=== PATIENT | female | born 1975 ===

== ENCOUNTER 2020-12-20 10:16 | Outpatient (REF) | payer BC, SELFPAY ==
[2020-12-20 10:54] LABS: MANUAL DIFF FLAG NO
[2020-12-20 11:01] LABS: Basophils Percent Auto 0.6 % (0-2); Eosinophils Absolute Auto 0.3 X10*3/uL (0.0-0.4); Hemoglobin 13.7 g/dl (12.0-16.0); Imm Gran Abs Auto 0.02 X10*3/uL (0.00-0.03); Imm Gran Pct Auto 0.4 % (0.0-0.4); Lymphocytes Absolute Auto 1.9 X10*3/uL (1.2-4.9); Lymphocytes Percent Auto 37.2 % (20-40); Mean Corpuscular HGB Conc 34.3 g/dl (31.0-35.0); Mean Corpuscular Hemoglobin 29.6 pg (27.0-33.0); Mean Corpuscular Volume 86.4 fL (80-98); Mean Platelet Volume 8.8 fL (9.4-12.3); Monocytes Absolute Auto 0.4 X10*3/uL (0.1-1.2); Monocytes Percent Auto 7.1 % (2-11); Neutrophils Absolute Auto 2.6 X10*3/uL (2.0-8.3); Neutrophils Percent Auto 49.7 % (45-73); Platelet Count 292 X10*3/uL (160-400); Red Blood Count 4.63 X10*6/uL (4.20-5.50); Red Cell Distribution Width 11.9 % (11.0-16.0); White Blood Count 5.2 X10*3/uL (4.8-10.8)
[2020-12-20 11:44] LABS: Alanine Aminotransferase 38 U/L (0-31); Albumin Level 4.5 g/dL (3.5-5.0); Alkaline Phosphatase 90 U/L (39-117); Anion Gap 15 (12-20); Aspartate Amino Transferase 22 U/L (5-31); Bilirubin Total < 0.2 mg/dL (0.0-1.0); Blood Urea Nitrogen 18 mg/dL (9-16); Carbon Dioxide 27 mmol/L (22-29); Chloride 104 mmol/L (96-108); Cholesterol 210 mg/dL; Estimated Glomerular Filt Rate > 60; Glucose Random 108 mg/dL (60-115); HDL Cholesterol 50 mg/dL; LDL Cholesterol Calculated 143 mg/dl; Potassium 4.7 mmol/L (3.3-5.1); Sodium 141 mmol/L (135-145); Total Protein 7.2 g/dL (6.5-8.0); Triglycerides 86 mg/dL
[2020-12-20 11:46] LABS: Thyroid Stimulating Hormone 1.22 uIU/mL (0.32-4.0)
== END 2020-12-20 10:17 | disposition home or self-care (01) ==
LOC: HO.LAB 10:16
PROVIDERS: PCP Internal Medicine; Visit Provider Internal Medicine
DX: F33.42 Major depressive disorder, recurrent, in full remission (principal); F90.0 Attention-deficit hyperactivity disorder, predominantly inattentive type; G47.13 Recurrent hypersomnia; G47.33 Obstructive sleep apnea (adult) (pediatric)
CPT/HCPCS: 36415; 80053; 80061; 84443; 85025

== ENCOUNTER 2020-12-26 11:29 | Outpatient (REF) | payer BC, SELFPAY ==
--- NOTE | ~2020-12-26 | MM_ITS ---
EXAMINATION: MM SCREENING DIGITAL BREAST TOMOSYNTHESIS, BILATERAL CLINICAL INFORMATION: Screening. Asymptomatic. The lifetime risk of breast cancer based on the Tyrer-Cuzick Model is 9.4%. COMPARISON: Mammography: December 15, 2018 TECHNIQUE: Digital breast tomosynthesis is performed in both the craniocaudal and mediolateral oblique views along with computer-aided detection (CAD). Synthesized 2D images are generated from the tomosynthesis. FINDINGS: The breasts are extremely dense, which lowers the sensitivity of mammography (ACR BI-RADS breast composition Category d). There are no significant masses, abnormal calcifications, or other abnormalities. Skin calcifications seen within the right axilla. MM/MM tomosynthesis screening BI IMPRESSION: There are no significant changes from prior study. ASSESSMENT: BI-RADS 1: Negative RECOMMENDATION: Routine annual mammography screening. This patient's information was entered into a reminder system with a target due date for their next mammogram.
== END 2020-12-26 11:30 | disposition home or self-care (01) ==
LOC: HO.MAMMO 11:29
PROVIDERS: PCP Internal Medicine; Visit Provider Internal Medicine
DX: Z12.31 Encounter for screening mammogram for malignant neoplasm of breast (principal)
CPT/HCPCS: 77063; 77067

== ENCOUNTER 2021-07-23 10:51 | Outpatient (REF) | payer OTHER, SELFPAY ==
[2021-07-23 16:21] LABS: CT PCR NOT DETECTED (Not Detect.); NG PCR NOT DETECTED (Not Detect.)
[2021-07-26 06:06] LABS: HPV mRNA E6/E7 rflx Not Detected (Not Detected)
== END 2021-07-23 10:52 | disposition home or self-care (01) ==
LOC: HO.LAB 10:51
PROVIDERS: PCP Internal Medicine; Visit Provider Obstetrics & Gynecology
DX: Z01.419 Encounter for gynecological examination (general) (routine) without abnormal findings (principal); Z11.51 Encounter for screening for human papillomavirus (HPV); Z11.3 Encounter for screening for infections with a predominantly sexual mode of transmission; N93.9 Abnormal uterine and vaginal bleeding, unspecified; N91.5 Oligomenorrhea, unspecified
CPT/HCPCS: 87491; 87591; 87624; 88142; 99212

== ENCOUNTER 2021-08-06 13:35 | Outpatient (REF) | payer OTHER, SELFPAY | END 2021-08-06 13:36 | disposition home or self-care (01) | LOC: HO.LAB 13:35 | PROVIDERS: PCP Internal Medicine; Visit Provider Obstetrics & Gynecology | DX: N93.9 Abnormal uterine and vaginal bleeding, unspecified (principal) | CPT/HCPCS: 58100; 88305 ==

== ENCOUNTER 2021-08-08 11:03 | Outpatient (REF) | payer OTHER, SELFPAY ==
[2021-08-08 11:49] LABS: Hematocrit 39.6 % (37-47); Hemoglobin 13.5 g/dl (12.0-16.0); Mean Corpuscular HGB Conc 34.1 g/dl (31.0-35.0); Mean Corpuscular Hemoglobin 29.8 pg (27.0-33.0); Mean Corpuscular Volume 87.4 fL (80-98); Platelet Count 273 X10*3/uL (160-400); Red Blood Count 4.53 X10*6/uL (4.20-5.50); Red Cell Distribution Width 11.9 % (11.0-16.0); White Blood Count 4.7 X10*3/uL (4.8-10.8)
[2021-08-08 12:34] LABS: TSH reflex Free T4 1.02 uIU/mL (0.32-4.0)
[2021-08-08 12:48] LABS: HCG Quantitative 3 mIU/mL
== END 2021-08-08 11:04 | disposition home or self-care (01) ==
LOC: HO.US 11:03
PROVIDERS: PCP Internal Medicine; Visit Provider Obstetrics & Gynecology
DX: N93.9 Abnormal uterine and vaginal bleeding, unspecified (principal)
CPT/HCPCS: 36415; 84443; 84702; 85027

== ENCOUNTER 2021-08-28 13:28 | Outpatient (REF) | payer OTHER, SELFPAY ==
--- NOTE | ~2021-08-28 | US_ITS ---
EXAMINATION: US PELVIC AND TRANSVAGINAL CLINICAL INFORMATION: Abnormal uterine and vaginal bleeding. COMPARISON: None TECHNIQUE: Ultrasound of the pelvis is performed using both transabdominal and transvaginal transducers along with Doppler. Transvaginal imaging is performed due to inadequate visualization transabdominally. FINDINGS: Uterus: The uterus is retroverted and retroflexed and measures 6.1 x 3.6 x 4.4 cm. There are nabothian cysts within the cervix. The double wall endometrial thickness is 0.5 mm. The uterus is smooth in contour and has normal myometrial echogenicity. Within the anterior uterine fundus, there is a heterogeneous probable fibroid measuring 3 x 2.5 x 3.3 cm. Adnexa: Both ovaries are visualized. There is normal color-flow to the adnexa. There is no ovarian torsion. Trace pelvic free fluid. Right ovary measures 2.6 x 1.1 x 1.4 cm. Right ovarian volume of 2.1 mL. Left ovary measures 2.3 x 1 x 1.1 cm. Left ovarian volume of 1.3 mL. US/US pelvic and transvaginal IMPRESSION: 1. Uterine fundal fibroid measuring up to 3.3 cm. 2. Sonographically unremarkable endometrium. 3. Trace pelvic free fluid.
== END 2021-08-28 13:29 | disposition home or self-care (01) ==
LOC: HO.US 13:28
PROVIDERS: PCP Internal Medicine; Visit Provider Obstetrics & Gynecology
DX: N93.9 Abnormal uterine and vaginal bleeding, unspecified (principal)
CPT/HCPCS: 76830; 76856

== ENCOUNTER 2021-09-18 12:59 | Outpatient (REF) | payer OTHER, SELFPAY | END 2021-09-18 13:00 | disposition home or self-care (01) | LOC: HO.LAB 12:59 | PROVIDERS: PCP Internal Medicine; Visit Provider Obstetrics & Gynecology | DX: N93.9 Abnormal uterine and vaginal bleeding, unspecified (principal) | CPT/HCPCS: 58100; 88305 ==

== ENCOUNTER → 2021-10-07 08:21 | Outpatient (BNVA) | payer OTHER, SELFPAY | PROVIDERS: PCP Internal Medicine; Visit Provider Obstetrics & Gynecology | DX: N93.9 Abnormal uterine and vaginal bleeding, unspecified (principal) | CPT/HCPCS: 99212 ==

== ENCOUNTER 2023-01-12 13:15 | Outpatient (REF) | payer OTHER, SELFPAY ==
[2023-01-12 13:31] LABS: MANUAL DIFF FLAG NO
[2023-01-12 14:21] LABS: Basophils Percent Auto 0.4 % (0-2); Eosinophils Absolute Auto 0.2 X10*3/uL (0.0-0.4); Eosinophils Percent Auto 3.5 % (0-4); Hemoglobin 14.9 g/dl (12.0-16.0); Imm Gran Abs Auto 0.01 X10*3/uL (0.00-0.03); Imm Gran Pct Auto 0.1 % (0.0-0.4); Mean Corpuscular HGB Conc 35.5 g/dl (31.0-35.0); Mean Corpuscular Volume 84.5 fL (80.0-98.0); Monocytes Absolute Auto 0.4 X10*3/uL (0.1-1.2); Monocytes Percent Auto 5.4 % (2-11); Neutrophils Absolute Auto 4.1 x10*3/uL (2.0-8.3); Neutrophils Percent Auto 60.6 % (45-73); Platelet Count 307 X10*3/uL (160-400); Red Blood Count 4.97 X10*6/uL (4.20-5.50); White Blood Count 6.8 X10*3/uL (4.8-10.8)
[2023-01-12 15:16] LABS: Alanine Aminotransferase 43 U/L (0-31); Albumin Level 4.5 g/dL (3.5-5.0); Alkaline Phosphatase 100 U/L (39-117); Anion Gap 12 (12-20); Aspartate Amino Transferase 24 U/L (5-31); Bilirubin Total 0.4 mg/dL (0.0-1.0); Blood Urea Nitrogen 22 mg/dL (9-16); Calcium 9.5 mg/dL (8.4-10.2); Carbon Dioxide 25 mmol/L (22-29); Chloride 109 mmol/L (96-108); Cholesterol 236 mg/dL; Estimated Glomerular Filt Rate > 60; Glucose Random 106 mg/dL (60-115); HDL Cholesterol 41 mg/dL; LDL Cholesterol Calculated 126 mg/dl; Potassium 4.2 mmol/L (3.3-5.1); Sodium 142 mmol/L (135-145); Total Protein 7.3 g/dL (6.5-8.0); Triglycerides 345 mg/dL
== END 2023-01-12 13:16 | disposition home or self-care (01) ==
LOC: HO.LAB 13:15
PROVIDERS: PCP Internal Medicine; Visit Provider Internal Medicine
DX: Z00.00 Encounter for general adult medical examination without abnormal findings (principal); E78.00 Pure hypercholesterolemia, unspecified; F32.5 Major depressive disorder, single episode, in full remission; J02.9 Acute pharyngitis, unspecified
CPT/HCPCS: 36415; 80053; 80061; 85025

== ENCOUNTER 2024-01-08 06:53 | Day surgery (SDC) | payer OTHER, SELFPAY ==
[2024-01-06 10:29] VITALS: BMI 26.4
--- NOTE | 2024-01-07 12:21 | P.CONAN_ITS ---
Documented by User: Mary Candelaria NP 01/07/24 12:21 HPI - Anesthesia Eval Consult details Narrative: 48yo F for Colonoscopy [facility] Active Problems Active Problems: All Active Problems (Updated 01/06/24 @ 10:28 by Katlin Hunt RN) Abnormal uterine bleeding (Acute) Oligomenorrhea (Acute) Past Medical History Medical History (Updated 01/06/24 @ 10:28 by Katlin Hunt RN) KODI (stress urinary incontinence, female) GERD (gastroesophageal reflux disease) Depression Family History Family History Father Diabetes Mother No problems noted. Surgical History Surgical History History of pubovaginal sling History of esophagogastroduodenoscopy (EGD) History of bladder surgery Social History Social History (Updated 01/06/24 @ 10:28 by Katlin Hunt RN) Patient Tobacco Use Status: Never used Tobacco Use of substances other than those prescribed or required for medical reasons: No Are you DNR?: No Advance Directives: No Advance Directives Information Provided: Yes Meds Allergies Allergy/AdvReac Type Severity Reaction Status Date / Time No Known Allergies Allergy Verified 01/08/24 08:02 [No Known Allergies*] Home Medications Medication Instructions Recorded Confirmed Last Taken Type No Known Home Meds 01/08/24 01/08/24 Unknown History Exam Height,Weight and Vital Signs: Height 5 ft 3 in Weight 67.585 kg Assessment and Plan Assessment Anesthesia Assessment: Chart Reviewed Documented by User: Kishor Alamo MD 01/08/24 09:14 [facility] Past Medical History Medical History (Updated 01/06/24 @ 10:28 by Katlin Hunt RN) KODI (stress urinary incontinence, female) GERD (gastroesophageal reflux disease) Depression Patient : No Family History Family History Father Diabetes Mother No problems noted. Family history of problems with anesthesia: No Surgical History Surgical History History of pubovaginal sling History of esophagogastroduodenoscopy (EGD) History of bladder surgery History of Problems with Anesthesia: No Social History Social History (Updated 01/06/24 @ 10:28 by Katlin Hunt RN) Patient Tobacco Use Status: Never used Tobacco Use of substances other than those prescribed or required for medical reasons: No Are you DNR?: No Advance Directives: No Advance Directives Information Provided: Yes Meds Allergies Allergy/AdvReac Type Severity Reaction Status Date / Time No Known Allergies Allergy Verified 01/08/24 08:02 [No Known Allergies*] Home Medications Medication Instructions Recorded Confirmed Last Taken Type No Known Home Meds 01/08/24 01/08/24 Unknown History Exam Airway Mallampati Class: I TM Dist: >3cm Neck ROM: Full Loose/Missing/Broken Teeth: No Heart: ok Lungs: ok Assessment and Plan Assessment Anesthesia Assessment: Anesthesia Plan Discussed Final Anesthetic Review Family History of Problems with Anesthesia: No History of Problems with Anesthesia: No NPO: Yes ASA Class: II Final Preanesthetic Review: No Changes in Pt Med Stat, Meds/Allgs Chart Reviewed, Consent Obtained/Reviewed and Anes Risks/Benef Reviewed Patient Risk: Low Procedure Risk: Low Anesthetic Plan Anesthetic Plan: MAC: and Agree w/ Assess. and Plan Disposition: Standard PACU
[2024-01-08 08:00] LABS: UPreg QC Valid YES; Urine Pregnancy NEGATIVE (NEGATIVE)
[2024-01-08 08:03] VITALS: BP 116/63; PULSE 64; RESP 16; TEMP 36.7; O2SAT 97; BMI 25.8
[2024-01-08] MEDS: Lactated Ringers 1,000 ML 100 ML IVCONT (08:24)
--- NOTE | 2024-01-08 08:57 | MHC.SHP ---
Pre-Procedural Eval Section A - 24 Hr Update-Section A only Date of Service: 01/08/24 Section B - Complete if H&P > 30 days Chief Complaint: screening Details of Present Illness: see H&P no changes Relevant Family History (Specify if Yes): No Relevant Social History: None Present Medications: see Short Stay Collaborative assessment Medical History: No relevant PMH Allergies: Allergies Allergy/AdvReac Type Severity Reaction Status Date / Time No Known Allergies Allergy Verified 01/08/24 08:02 [No Known Allergies*] Review of Systems Sugical H&P ROS: Negative: Constitution, Cardiovascular, Respiratory, Neurological, Psychiatric, Hem-Onc, Allergic/Immunologic, Gastrointestinal, Genitourinary, Musculoskeletal, Integumentary, Endocrine and Eyes/Ears/Nose/Throat Exam Surgical H&P Exam: Normal: HEENT, Normal: Heart, Normal: Lungs, Normal: Extremities, Normal: Abdomen, Normal: Skin and Normal: Neurological Plan Diagnosis/Plan: Unchanged I have reviewed the history and physical and performed a pertinent physical examination on my patient. No changes have occurred unless specified. Time Spent With Patient Time: Total time managing care of this patient today ____ minutes.
[2024-01-08 09:40] VITALS: BP 86/45; PULSE 53; RESP 16; TEMP 36.7; O2SAT 95
--- NOTE | 2024-01-08 09:59 | OP_ITS ---
DATE OF SERVICE: 01/08/2024 SURGEON: Perez Koroma MD INDICATIONS: Colon cancer screening. PREOPERATIVE DIAGNOSIS: POSTOPERATIVE DIAGNOSIS: PROCEDURE PERFORMED: Colonoscopy to the terminal ileum. ESTIMATED BLOOD LOSS: COMPLICATIONS: ANESTHESIA: Monitored anesthesia care. ASSISTANTS: SPECIMENS: DESCRIPTION OF PROCEDURE: A history and physical performed, the risks and benefits of the procedure were explained to the patient. Informed consent was obtained. The patient was placed in the left lateral decubitus position. A digital rectal exam was performed and was found to be normal. The Olympus pediatric video colonoscope was introduced into the rectum and advanced to the cecum. The cecum was identified by transillumination, palpation, and identification of ileocecal valve. Examination was performed. The scope was removed. She tolerated the procedure well and was taken to recovery room in stable condition. FINDINGS: The terminal ileum was examined and appeared normal. The visualized colonic mucosa was normal. There was a moderate amount of semi-formed stool present in the ascending, transverse, and descending colon, part of which could be suction, part of which could not be suctioned. This did limit the sensitivity examination for detection of small polyps. This was washed and suctioned as best possible. No polyps were identified. Retroflexed examination showed small internal hemorrhoids. IMPRESSION: 1. Normal colonoscopy. 2. Limited examination as above. RECOMMENDATION: 1. Follow up as needed. 2. The recommendation for repeat colonoscopy is 3 years based on the limitations of today's prep. MD SAUD Bonner/JOSEL / [id number]
[2024-01-08 10:01] VITALS: BP 99/65; PULSE 66; RESP 17; TEMP 36.7; O2SAT 94
== END 2024-01-08 10:15 | disposition home or self-care (01) ==
PROVIDERS: Nurse Practitioner; PCP Internal Medicine; Visit Provider Internal Medicine Gastroenterology
PROC: 0DJD8ZZ Inspection of Lower Intestinal Tract, Via Natural or Artificial Opening Endoscopic (ICD-10-PCS; CPT 45378; principal; 2024-01-08 09:10)
DX: Z12.11 Encounter for screening for malignant neoplasm of colon (principal); K64.8 Other hemorrhoids; R10.12 Left upper quadrant pain; K21.9 Gastro-esophageal reflux disease without esophagitis; N39.3 Stress incontinence (female) (male); F32.A Depression, unspecified; Z98.890 Other specified postprocedural states
CPT/HCPCS: 45378; 81025; J2704

== ENCOUNTER 2024-10-19 07:38 | Outpatient (REF) | payer OTHER, SELFPAY ==
[2024-10-19 10:49] LABS: MANUAL DIFF FLAG NO
[2024-10-19 10:53] LABS: Basophils Percent Auto 0.7 % (0-2); Eosinophils Absolute Auto 0.3 X10*3/uL (0.0-0.4); Eosinophils Percent Auto 5.8 % (0-4); Hematocrit 42.1 % (37.0-47.0); Hemoglobin 14.6 g/dl (12.0-16.0); Imm Gran Abs Auto 0.01 X10*3/uL (0.00-0.03); Imm Gran Pct Auto 0.2 % (0.0-0.4); Lymphocytes Absolute Auto 2.1 X10*3/uL (1.2-4.9); Lymphocytes Percent Auto 39.1 % (20-40); Mean Corpuscular HGB Conc 34.7 g/dl (31.0-35.0); Mean Corpuscular Hemoglobin 30.2 pg (27.0-33.0); Mean Corpuscular Volume 87.2 fL (80.0-98.0); Mean Platelet Volume 9.1 fL (9.4-12.3); Monocytes Absolute Auto 0.4 X10*3/uL (0.1-1.2); Monocytes Percent Auto 6.5 % (2-11); Neutrophils Absolute Auto 2.6 x10*3/uL (2.0-8.3); Neutrophils Percent Auto 47.7 % (45-73); Platelet Count 283 X10*3/uL (160-400); Red Blood Count 4.83 X10*6/uL (4.20-5.50); Red Cell Distribution Width 11.7 % (11.0-16.0); White Blood Count 5.4 X10*3/uL (4.8-10.8)
[2024-10-19 11:10] LABS: Alanine Aminotransferase 63 U/L (0-31); Albumin Level 4.6 g/dL (3.5-5.0); Alkaline Phosphatase 89 U/L (39-117); Anion Gap 12 (12-20); Aspartate Amino Transferase 44 U/L (5-31); Bilirubin Total 0.5 mg/dL (0.0-1.0); Blood Urea Nitrogen 14 mg/dL (9-16); Calcium 9.9 mg/dL (8.4-10.2); Carbon Dioxide 29 mmol/L (22-29); Chloride 104 mmol/L (96-108); Cholesterol 259 mg/dL (<200); Estimated Glomerular Filt Rate > 60; Glucose Random 97 mg/dL (60-115); HDL Cholesterol 54 mg/dL (>40); LDL Cholesterol Calculated 174 mg/dL (<100); Potassium 4.2 mmol/L (3.3-5.1); Sodium 141 mmol/L (135-145); Total Protein 7.5 g/dL (6.5-8.0); Triglycerides 158 mg/dL (<150)
== END 2024-10-19 07:39 | disposition home or self-care (01) ==
LOC: HO.10HDL 07:38
PROVIDERS: Visit Provider Internal Medicine
DX: Z00.00 Encounter for general adult medical examination without abnormal findings (principal); E78.00 Pure hypercholesterolemia, unspecified
CPT/HCPCS: 36415; 80053; 80061; 85025

== ENCOUNTER 2025-04-27 08:01 | Outpatient (REF) | payer OTHER, SELFPAY ==
--- OUTSIDE RECORDS SUMMARY | 2025-04-27 08:05 | XMS_ITS ---
Author Organization [facility] Address [address] [place] [address] Care Team Providers Care Contractor Broomcorn Threshing Name Role Phone MiahJanis buenrostro Primary Care Provider Unavailab Perez Yee Jr Unavailable [phone] Allergies No Known Allergies REASON FOR VISIT Patient presents today for consultation Medications Medication SIG (Take, Route, Frequency, Duration) Notes Start Date End Date Status MiraLax (colon prep) 17 GM/SCOOP mixed with Gatorade or Crystal Light Orally begin at 5:00 p.m. the day before the procedure for 1 day 11/19/2023 Active Social History Tobacco Use: Social History Observation Description Date Details (start date - stop date) Never Smoker NA - NA Tobacco Use/Smoking Question Answer Notes Patient is a nonsmoker Alcohol Screen Question Answer Notes Did you have a drink containing alcohol in the p ast year? No Points 0 Interpretation Negative Problems Problem Type SNOMED Code ICD Code Onset Dates Problem Status W/U Status Risk Notes Problem 845411559 Colon cancer screening (Z12.11) Active confirmed Problem 141413477 Gastroesophageal reflux disease without esophagitis (K21.9) Active confirmed Problem 447346539 Left upper quadr ant pain (R10.12) Active confirmed Vital Signs Temperature 97.7 degrees Fahrenheit 11/19/19 24 Blood pressure systolic 00 mm Hg 11/19/19 24 Blood pressure diastolic 00 mm Hg 024 Height 63 in 11/19/2023 Weight 149 lbs 11/19/2023 BMI 26.39 kg/m2 11/19/2023 Encounters Encounter Location Date Provider Diagnosis [facility] [address] [place] [address] 11/19/2023 Perezaris Koroma Jr Colon cancer screening Z12.11 ; Gastroesophageal reflux disease without esophagitis K21.9 and Left upper quadrant pain R10.12 Assessments Encounter Date Diagnosis (ICD Code) Assessment Notes Treatment Notes Treatment Clinical Notes Section Notes 11/19/2023 Colon cancer screening (ICD-10 - Z12.11) Colonoscopy material was printed We discussed gastroesophageal reflux disease today. We discussed diet, lifestyle modifications, and weight management regarding the treatment of reflux. Currently she is doing well controlling her symptoms with diet. Her left upper quadrant pain seems known GI related. We discussed this today. She can use oyfu-eoe-gtokdhy anti-inflammatorie s as needed. She is due for colonoscopy for colon cancer screening. We discussed her symptoms as of the procedure today. She understands these and agrees to proceed. 11/19/2023 Gastroesophageal reflux disease without esophagitis (ICD-10 - K21.9) We discussed gastroesophageal reflux disease today. We discussed diet, lifestyle modifications, and weight management regarding the treatment of reflux. Currently she is doing well controlling her symptoms with diet. Her left upper quadrant pain seems known GI related. We discussed this today. She can use hnvs-arj-jkbbklv anti-inflammatorie s as needed. She is due for colonoscopy for colon cancer screening. We discussed her symptoms as of the procedure today. She understands these and agrees to proceed. 11/19/2023 Left upper quadrant pain (ICD-10 - R10.12) We discussed gastroesophageal reflux disease today. We discussed diet, lifestyle modifications, and weight management regarding the treatment of reflux. Currently she is doing well controlling her symptoms with diet. Her left upper quadrant pain seems known GI related. We discussed this today. She can use ixtk-tvl-krtnyvg anti-inflammatorie s as needed. She is due for colonoscopy for colon cancer screening. We discussed her symptoms as of the procedure today. She understands these and agrees to proceed. Plan Of Treatment Medication Medication Name Sig Start Date Stop Date Notes MiraLax (colon prep) 17 GM/SCOOP mixed with Gatorade or Crystal Light Orally begin at 5:00 p.m. the day before the procedure for 1 day 11/19/2023 Treatment Notes Assessment Notes Colon cancer screening Colonoscopy mater ial was printed Future Test Test Name Order Date COLONOSCOPY 11/19/2023 Next Appt Details Follow Up: 1 Year, Reason: Progress Notes * MEERA CHAVARRIA ADOB:1974 (48 yo F)Acc No.[id number]:11/19/2023 Progress Notes Patient:MEERA HI Provider:?Perez Koroma MD :1975???Age:48 Y???Sex:Female D ate:11/19/2023 Address:[address] [place], [place] [id number] Pcp:Janis Angeles Subjective: * Chief Complaints: * ???1. Patient presents today for consultation. * HPI: ???New symptom(s):? The patient is a pleasant 48-year-old woman seen today in consultation. She long-standing history of left upper quadrant discomfort in the setting of gastroesophageal reflux disease. Evaluation in 2019 with endoscopy showed normal endoscopic findings. Biopsies did show some esophagitis but no evidence of Hayes's esophagus or H. pylori. We reviewed this today. Previous treatment has included H2 blockers and proton pump inhibitors. More recently, she's been able to control her symptoms with diet. She has no complaints of dysphagia, hematemesis, or melena. Weight and appetite have been stable. ?Her left upper quadrant discomfort seems worse at night when she sleeps on her left side. Sleeping on her right side doesn't bother her. The discomfort is under the left rib cage and not related to diet or bowel movements. ?She has no complaints of rectal bleeding or change in her bowel habits. She has not undergone prior colonoscopy. She is due for screening colonoscopy. * ROS:?General/Constitutional:?Change in appetite?denies.?Fatigue?denies.?ENT:?Patient denies?difficulty swallowing.?Respiratory:?Patient denies?shortness of breath.?Cardiovascular:?Patient denies?chest pain.?Gastrointestinal:?Comments?See HPI for details.?Genitourinary:?Difficulty urinating?denies.?Incontinence?denies.?Musculoskeletal:?Patient denies?muscle aches.?Skin:?Patient denies?pruritis.?Neurologic:?Patient denies?low back pain.?Psychiatric:?Patient denies?mental or physical abuse.? * Medical History:?Stress urin dania incontinence, Environmental allergies, Depression, Gastroesophageal reflux disease, EGD 01/05 normal. * Surgical History:?Pubovagina l sling/excision of posterior vaginal mass 2017. * Family History:?Father: delbert herman, diagnosed with Diabetes.?Mother: , mom at when patient was 8 years old.? no known hx of colon ca. * Social History:?Tobacco Use:?Tobacco Use/Smoking?Patient is a?nonsmoker.?Drugs/Alcohol:?Alcohol Screen?Did you have a drink containing alcohol in the past year??No,?Points?0,?Interpretation?Negative.?Miscellaneous:?Marital status: . Occupation: works in kitchen. * Medications:?Discontinued Ad derall XR 10 MG Capsule Extended Release 24 Hour 1 capsule in the morning Oral Once a day, Discontinued Sertraline HCl 50 MG Tablet TAKE 1 TABLET BY MOUTH EVERY DAY Orally Once a day, Discontinued Fluticasone Propionate 50 MCG/ACT Suspension USE 1 SPRAY INTO EACH NOSTRIL EVERY DAY Nasal Once a day, Discontinued Omeprazole 40 MG Capsule Delayed Release 1 capsule 30 minutes before morning meal Orally Once a day, Medication List reviewed and reconciled with the patient * Allergies:?N.K.D.A. Objective: * Vitals:?Wt: 149 lbs, Ht: 63 in, BMI:26.39 Index, BP: 00/00 mm Hg, Temp: 97.7. * Examination: ???General Examination: ?GENERAL APPEARANCE:?in no acute distress.?HEAD:?normocephalic.?EYES:?sclera non-icteric.?ORAL CAVITY:?mucosa moist.?NECK/THYROID:?no lymphadenopathy.?SKIN:?anicteric.?HEART:?S1, S2 normal, no murmurs.?LUNGS:?clear to auscultation bilaterally.?CHEST:?normal shape and expansion.?ABDOMEN:?soft, nontender, nondistended, bowel sounds present, no organomegaly .?EXTREMITIES:?no clubbing, cyanosis, or edema.?PSYCH:?cognitive function intact.? Assessment: * Assessment: 1.?Gastroesophageal reflux d isease without esophagitis - K21.9 (Primary)?2.?Colon cancer screening - Z12.11?3.?Left upper quadrant pain - R10.12? We discussed gastroesophagea l reflux disease today. We discussed diet, lifestyle modifications, and weight management regarding the treatment of reflux. Currently she is doing well controlling her symptoms with diet. Her left upper quadrant pain seems known GI related. We discussed this today. She can use pvuy-doj-xqdjiuh anti-inflammatories as needed. She is due for colonoscopy for colon cancer screening. We discussed her symptoms as of the procedure today. She understands these and agrees to proceed. Plan: * Treatment: * Procedure Codes:?3017F COLOR ECTAL CA SCREEN DOC REV, G9903 Pt scrn tbco id as non user, G9745 DOC RSN FOR NOT SCREEN/REC F/U HBP * Preventive Medicine:? ??Counseling:?Care goal follow-up plan:?Above Normal BMI Follow-up?Lifestyle education regarding diet,?BMI management provided?Yes.? * Follow Up:?1 Year * * Sign off status: Completed true * Provider:?Perez Koroma MD Date:?0 11/19/2023 Generated for Printi ng/Favalentineg/eTransmitting on:?04/27/2025 08:04 AM EDT History and Physical Notes * HPI (History of Present Illness) Category Sub-Category Detail Notes Category Not es New symptom(s) The patient is a pleasant 48-year-old woman seen today in consultation. She long-standing history of left upper quadrant discomfort in the setting of gastroesophageal reflux disease. Evaluation in 2019 with endoscopy showed normal endoscopic findings. Biopsies did show some esophagitis but no evidence of Hayes's esophagus or H. pylori. We reviewed this today. Previous treatment has included H2 blockers and proton pump inhibitors. More recently, she's been able to control her symptoms with diet. She has no complaints of dysphagia, hematemesis, or melena. Weight and appetite have been stable. Her left upper quadrant discomfort seems worse at night when she sleeps on her left side. Sleeping on her right side doesn't bother her. The discomfort is under the left rib cage and not related to diet or bowel movements. She has no complaints of rectal bleeding or change in her bowel habits. She has not undergone prior colonoscopy. She is due for screening colonoscopy. Examination Category Sub-Category Detail Notes Category Not es General Examination GENERAL APPEARANCE: in no acute di stress HEAD: normocephalic EYES: sclera non-icteric NECK/THYROID: no lymphadenopathy HEART: S1, S2 normal, no mu rmurs CHEST: normal shape and exp ansion LUNGS: clear to auscultatio n bilaterally ABDOMEN: soft, nontender, non distended, bowel sounds present, no organomegaly SKIN: anicteric EXTREMITIES: no clubbing, cyanosi s, or edema PSYCH: cognitive function i ntact ORAL CAVITY: mucosa moist
[2025-04-27 10:21] LABS: Alanine Aminotransferase 41 U/L (0-31); Albumin Level 4.5 g/dL (3.5-5.0); Alkaline Phosphatase 92 U/L (39-117); Anion Gap 7 (12-20); Aspartate Amino Transferase 27 U/L (5-31); Bilirubin Total 0.4 mg/dL (0.0-1.0); Blood Urea Nitrogen 18 mg/dL (9-16); Calcium 9.2 mg/dL (8.4-10.2); Carbon Dioxide 28 mmol/L (22-29); Chloride 109 mmol/L (96-108); Cholesterol 271 mg/dL (<200); Estimated Glomerular Filt Rate > 60; Glucose Random 110 mg/dL (60-115); HDL Cholesterol 51 mg/dL (>40); LDL Cholesterol Calculated 192 mg/dL (<100); Potassium 4.2 mmol/L (3.3-5.1); Sodium 140 mmol/L (135-145); Total Protein 6.9 g/dL (6.5-8.0); Triglycerides 143 mg/dL (<150)
[2025-04-27 10:40] LABS: Ferritin 93 ng/mL (10-250); HBS Num1 17.86 mIU/mL (0-7.99); HBc Num1 0.09 S/CO (0.00-0.79); HBsAGNum1 0.42 S/CO (0.00-0.99); Hepatitis B Core Antibody Nonreactive (Nonreactive); Hepatitis B Surface Antigen Negative (Negative); ~HepC Num1 1.67 S/CO (0.00-0.79); ~Hepatitis B Surface Antibody REACTIVE (Nonreactive); ~Hepatitis C Antibody Reactive (Nonreactive)
[2025-05-03 08:03] LABS: Anti Nuclear Antibody Screen POSITIVE (NEGATIVE)
[2025-05-03 08:08] LABS: Anti Nuclear Antibody Titer 1:40 titer
[2025-05-03 09:19] LABS: Smooth Muscle Antibody <20 U (<20)
== END 2025-04-27 08:02 | disposition home or self-care (01) ==
LOC: HO.10HDL 08:01
PROVIDERS: Visit Provider Internal Medicine
DX: Z00.00 Encounter for general adult medical examination without abnormal findings (principal); E78.00 Pure hypercholesterolemia, unspecified; F32.5 Major depressive disorder, single episode, in full remission; R10.12 Left upper quadrant pain; R19.6 Halitosis
CPT/HCPCS: 36415; 80053; 80061; 82728; 86015; 86038; 86039; 86704; 86706; 86803; 87340

== ENCOUNTER 2025-05-09 09:08 | Outpatient (REF) | payer OTHER, SELFPAY ==
--- OUTSIDE RECORDS SUMMARY | 2025-05-09 09:42 | XMS_ITS | Patient Health Record ---
Author Organization [facility] Address [address] [place] [address] Care Team Providers Care Seed Tester Name Role Phone Janis Angeles Primary Care Provider Perez June Jr Unavailable Allergies No Known Allergies Reason For Referral No Information Medications Medication SIG (Take, Route, Frequency, Duration) Notes Start Date End Date Status MiraLax (colon prep) 17 GM/SCOOP mixed with Gatorade or Crystal Light Orally begin at 5:00 p.m. the day before the procedure for 1 day 11/19/2023 Active Immunizations Vaccine Route Administration Date Status Comme nts Influenza Unknown 08/24/2019 Administered Social History Tobacco Use: Social History Observation [...] Problem Status W/U Status Risk Notes Problem 023337404 Colon cancer screening (Z12.11) Active confirmed Problem 046210495 Left upper quadr ant pain (R10.12) Active confirmed Problem 541817839 Gastroesophageal reflux disease without esophagitis (K21.9) Active confirmed Plan Of Treatment Future Test Test Name Order Date UPPER GI ENDOSCOPY 11/17/2019 COLONOSCOPY 11/19/2023 Insurance Providers Payer Name Payer Address Payer Phone Subscriber Number Group Number Insured Name Patient Relationship to Insured Coverage Start Date Coverage End Date [facility] [address] [address] [place], [place] [id number] MEERA CHAVARRIA Self - patient is the insured Medical (General) History Medical History History ICD Code Stress urinary incontinence environmental allergies depression Gastroesophageal reflux disease, EGD 12/18 0 normal Surgical History Surgery Date(Month/Year) Pubovaginal sling/excision of posterior vaginal mass 2017
[2025-05-09 10:56] LABS: ~HepC Num1 1.64 S/CO (0.00-0.79); ~Hepatitis C Antibody Reactive (Nonreactive)
== END 2025-05-09 09:09 | disposition home or self-care (01) ==
LOC: HO.10HDL 09:08
PROVIDERS: Visit Provider Internal Medicine
DX: B18.2 Chronic viral hepatitis C (principal); E78.00 Pure hypercholesterolemia, unspecified; R74.01 Elevation of levels of liver transaminase levels; Z68.28 Body mass index [BMI] 28.0-28.9, adult
CPT/HCPCS: 36415; 86803; 87902

== ENCOUNTER 2025-06-05 08:09 | Outpatient (REF) | payer OTHER, SELFPAY ==
--- OUTSIDE RECORDS SUMMARY | 2025-06-05 08:13 | XMS_ITS | Patient Health Record ---
Author Organization [facility] Address [address] [place] [address] Care Team Providers Care Furniture Dipper Name Role Phone Janis Angeles Primary Care Provider Perez June Jr Unavailable [phone] Allergies No Known Allergies Reason For Referral [...] Problem Status W/U Status Risk Notes Problem 231745186 Colon cancer screening (Z12.11) Active confirmed Problem 278137720 Left upper quadr ant pain (R10.12) Active confirmed Problem 754027829 Gastroesophageal reflux disease without esophagitis (K21.9) Active confirmed Plan Of Treatment Future Test Test Name Order Date UPPER GI ENDOSCOPY 11/17/2019 COLONOSCOPY 11/19/2023 Insurance Providers Payer Name Payer Address Payer Phone Subscriber Number Group Number Insured Name Patient Relationship to Insured Coverage Start Date Coverage End Date [facility] [address] [address] [place], [place] [id number] MEERA CHAVARRIA Self - patient is the insured Medical (General) History Medical History History ICD Code Stress urinary incontinence environmental allergies depression Gastroesophageal reflux disease, EGD 12/18 0 normal Surgical History Surgery Date(Month/Year) Pubovaginal sling/excision of posterior vaginal mass 2017
== END 2025-06-05 08:10 | disposition home or self-care (01) ==
LOC: HO.MAMMO 08:09
PROVIDERS: PCP Internal Medicine; Visit Provider Internal Medicine
DX: Z12.31 Encounter for screening mammogram for malignant neoplasm of breast (principal)
CPT/HCPCS: 77063; 77067

== ENCOUNTER → 2025-06-05 08:30 | Outpatient (BNV) | payer OTHER, SELFPAY | PROVIDERS: PCP Internal Medicine; Visit Provider Radiology Body Imaging | DX: Z12.31 Encounter for screening mammogram for malignant neoplasm of breast (principal) | CPT/HCPCS: 77063; 77067 ==